=== PATIENT | male | born 1955 | race Caucasian/White ===

== ENCOUNTER 2017-02-23 07:06 | Day surgery (SDC) | payer BC ==
[2017-02-22 14:54] VITALS: BMI 44.3
[2017-02-23] MEDS ORDERED: PROPOFOL 20 ML ONE (07:47)
[2017-02-23] MEDS ORDERED: SUCCINYLCHOLINE CHLORIDE 200 MG/10 ML VIAL ONE (07:48)
[2017-02-23] MEDS ORDERED: GLYCOPYRROLATE 0.2 MG/1 ML VIAL ONE ×3 (08:00)
[2017-02-23] MEDS ORDERED: LIDOCAINE HCL/PF 2% SDV 5ML VIAL ONE (08:00)
[2017-02-23 08:47] VITALS: TEMP 98.5
[2017-02-23 09:55] VITALS: BP 110/64; PULSE 69
--- NOTE | 2017-02-26 11:24 | PATH ---
Surgical Pathology Report Patient Name: FLORECITA HEIN [facility]. Rec. #: [id number] /Age/Gender: 1955 (Age: 61) / M Account: [id number] Location: U-ENDOSCOPY Taken: 02/23/2017 Received: 02/23/2017 Reported: 02/26/2017 Physicians: Ady Hinojosa M.D. Specimen(s) Received A: BX POLYP ILEOCECAL VALVE B: BX RIGHT COLON POLYP C: BX SIGMOID COLON POLYP D: BX RECTAL POLYP Clinical History Surveillance Colon polyps Final Diagnosis A. ILEOCECAL VALVE, POLYP, BIOPSY: TUBULAR ADENOMA. ADDITIONAL FRAGMENT OF COLONIC MUCOSA WITH PROMINENT REACTIVE LYMPHOID AGGREGATE. B. COLON, RIGHT, POLYP, BIOPSY: TUBULAR ADENOMA. C. COLON, SIGMOID, POLYP, BIOPSY: SERRATED ADENOMA. D. RECTUM, POLYP, BIOPSY: FRAGMENTS OF HYPERPLASTIC POLYP. Electronically Signed Avery Guajardo M.D. Gross Description A. Received in formalin, labeled "biopsy ileocecal polyps" are 3 stewart, irregular portions of soft tissue ranging from 0.1-0.2 cm in greatest dimension. The specimens are submitted in toto in one cassette. B. Received in formalin, labeled "biopsy right colon polyp" is a stewart, irregular portion of soft tissue measuring 0.3 cm in greatest dimension. The specimen is submitted in toto in one cassette. C. Received in formalin, labeled "biopsy sigmoid colon polyp" are 2 stewart, irregular portions of soft tissue measuring 0.2 and 0.3 cm in greatest dimension. The specimens are submitted in toto in one cassette. D. Received in formalin, labeled "biopsy rectal polyp" are 3 stewart, irregular portions of soft tissue ranging from 0.2-0.3 cm in greatest dimension. The specimens are submitted in toto in one cassette. DL02/23/2017 saudi02/23/2017
== END 2017-02-23 09:20 | disposition home or self-care (01) ==
LOC: JASU-ENDO 07:06
PROVIDERS: ATTEND Internal Medicine Gastroenterology
PROC: 0DBC8ZX Excision of Ileocecal Valve, Via Natural or Artificial Opening Endoscopic, Diagnostic (ICD-10-PCS; 2017-02-23)
PROC: 0DBK8ZX Excision of Ascending Colon, Via Natural or Artificial Opening Endoscopic, Diagnostic (ICD-10-PCS; 2017-02-23)
PROC: 0DBN8ZX Excision of Sigmoid Colon, Via Natural or Artificial Opening Endoscopic, Diagnostic (ICD-10-PCS; 2017-02-23)
PROC: 0DBP8ZX Excision of Rectum, Via Natural or Artificial Opening Endoscopic, Diagnostic (ICD-10-PCS; principal; 2017-02-23 08:00)
DX: Z12.11 Encounter for screening for malignant neoplasm of colon (principal); Z86.010 Personal history of colon polyps; K63.5 Polyp of colon; D12.2 Benign neoplasm of ascending colon; D12.5 Benign neoplasm of sigmoid colon; K62.1 Rectal polyp; K64.8 Other hemorrhoids
CPT/HCPCS: 88305-TC

== ENCOUNTER 2023-09-04 04:50 | Day surgery (SDC) | payer OTHER ==
[2023-09-03 11:29] VITALS: BMI 43.0
[2023-09-04 12:47] VITALS: TEMP 97.8
[2023-09-04 13:30] VITALS: BP 121/72; PULSE 62; RESP 19
== END 2023-09-04 13:34 | disposition home or self-care (01) ==
LOC: JASU-ENDO 04:50
PROVIDERS: ATTEND Internal Medicine Gastroenterology
PROC: 0DB98ZX Excision of Duodenum, Via Natural or Artificial Opening Endoscopic, Diagnostic (ICD-10-PCS; 2023-09-04)
PROC: 0DB78ZX Excision of Stomach, Pylorus, Via Natural or Artificial Opening Endoscopic, Diagnostic (ICD-10-PCS; 2023-09-04)
PROC: 0DB68ZX Excision of Stomach, Via Natural or Artificial Opening Endoscopic, Diagnostic (ICD-10-PCS; 2023-09-04)
PROC: 0DB48ZX Excision of Esophagogastric Junction, Via Natural or Artificial Opening Endoscopic, Diagnostic (ICD-10-PCS; 2023-09-04)
PROC: 0DBL8ZX Excision of Transverse Colon, Via Natural or Artificial Opening Endoscopic, Diagnostic (ICD-10-PCS; principal; 2023-09-04 11:00)
DX: Z12.11 Encounter for screening for malignant neoplasm of colon (principal); D12.3 Benign neoplasm of transverse colon; K64.8 Other hemorrhoids; K26.9 Duodenal ulcer, unspecified as acute or chronic, without hemorrhage or perforation; K44.9 Diaphragmatic hernia without obstruction or gangrene; K21.00 Gastro-esophageal reflux disease with esophagitis, without bleeding; K29.50 Unspecified chronic gastritis without bleeding
CPT/HCPCS: 88305-TC; 88342-TC